=== PATIENT | male | born 1960 | race American Indian/Alaskan Native ===

== ENCOUNTER 2018-04-24 23:42 | Emergency (ER) | payer OTHER ==
[2018-04-25] MEDS ORDERED: NORCO 5/325 PO ONE (06:33)
--- NOTE | 2018-04-25 06:42 | Emergency Department Report ---
HPI - General Chief Complaint: Back Pain/Injury Time Seen by Provider: 04/25/18 06:10 - HPI HPI: 58 year-old male presents to the emergency department via EMS from home with complaint of a 5 day history of back pain. He says that it is "everywhere" but appears to be worst in the lower portion of the back. It was no known trauma or injury that started this. He has not taken anything for her symptoms prior to presentation. He denies any fever, diarrhea, urinary retention, numbness, paresthesias or any other neurological deficits. He does say that he has been having some constipation issues over the past few weeks. No problems with ambulation. He has a previous history of a brain tumor and seizures. He has [facility] for primary care needs but has not seen them regarding his symptoms. No recent travel or sick contacts at home. ED Past Medical Hx - Past Medical History Previous Medical History?: Yes Hx Congestive Heart Failure: No Hx Diabetes: No Hx Seizures: Yes Hx Asthma: No Hx COPD: No Hx HIV: No Additional medical history: head tumor - Surgical History Past Surgical History?: Yes Additional Surgical History: head - Social History Smoking Status: Never Smoker Substance Use Type: None - Medications Home Medications: Home Medications Medication Instructions Recorded Confirmed Last Taken Type Levofloxacin [Levaquin TAB] 500 mg PO QDAY #7 tablet 11/09/15 Unknown Rx Docusate Sodium [Colace] 100 mg PO BID PRN #20 capsule 04/25/18 Unknown Rx HYDROcodone/ACETAMINOPHEN [[place] 1 each PO Q6H PRN #10 tablet 04/25/18 Unknown Rx 5-325 Tablet] ED Review of Systems ROS: Stated complaint: LOWEWR BACK PAIN Other details as noted in HPI Comment: All other systems reviewed and negative Constitutional: denies: chills, fever Eyes: denies: eye pain, eye discharge, vision change ENT: denies: ear pain, throat pain Respiratory: denies: cough, shortness of breath, wheezing Cardiovascular: denies: chest pain, palpitations Gastrointestinal: denies: abdominal pain, nausea, diarrhea Genitourinary: denies: urgency, dysuria Musculoskeletal: back pain. denies: arthralgia Skin: denies: rash, lesions Neurological: denies: headache, weakness, paresthesias Physical Exam - Physical Exam Vital Signs: Vital Signs 04/25/18 04/25/18 00:40 04:41 Temperature 97.4 F L Pulse Rate 84 79 Respiratory 20 14 Rate Blood Pressure 146/100 Blood Pressure 127/81 [Left] O2 Sat by Pulse 100 99 Oximetry Physical Exam: GENERAL: The patient is well-developed well-nourished. HENT: Normocephalic. Atraumatic. Patient has moist mucous membranes. EYES: Extraocular motions are intact. Pupils equal reactive to light bilaterally. NECK: Supple. Trachea is midline. CHEST/LUNGS: Clear to auscultation. There is no respiratory distress noted. HEART/CARDIOVASCULAR: Regular. There is mild tachycardia. There is no murmur. ABDOMEN: Abdomen is soft, nontender. Patient has normal bowel sounds. There is no abdominal distention. SKIN: Skin is warm and dry. NEURO: The patient is awake, alert, and oriented. The patient is cooperative. The patient has no focal neurologic deficits. The patient has normal speech. MUSCULOSKELETAL: There is no tenderness or deformity. There is no limitation range of motion. There is no evidence of acute injury. Muscle strength 5/5 upper and lower extremities. BACK: There is both midline and paraspinal generalized back pain. No step-off or deformity. ED Course Vital Signs 04/25/18 04/25/18 00:40 04:41 Temperature 97.4 F L Pulse Rate 84 79 Respiratory 20 14 Rate Blood Pressure 146/100 Blood Pressure 127/81 [Left] O2 Sat by Pulse 100 99 Oximetry ED Medical Decision Making - Lab Data Result diagrams: 04/25/18 06:44 04/25/18 06:43 - Radiology Data Radiology results: image reviewed interpreted by me: X-ray of the lumbar and thoracic spines did not show any fracture, subluxation or any obvious acute process. - Medical Decision Making Patient presents with a 5 day history of some back pain that is generalized but worse in the lower area. No numbness, paresthesias. He complained of some occasional constipation but no abdominal pain or distention. No urinary retention. The pain is both midline and paraspinal. There are no focal, motor or sensory deficits. He appears low suspicion for any of the emergent back condition such as cauda equina, epidural abscess or cord compression syndrome. He was given a single [place] pill with improvement of his discomfort. He was seen ambulatory in the emergency department prior to discharge and appeared stable on doing so. Patient's labs did show some hyponatremia with a sodium of 130. Patient was given a 1 L bolus of normal saline which should be hypertonic to his current sodium level. Vital signs stable throughout his ED course. The patient has good follow-up through the [facility] system and has been encouraged to see a primary care physician as well as an orthopedist or neurosurgeon regarding his back pain. He will return to the ER with any worsening of symptoms or any acute distress. - Differential Diagnosis muscle spasm, strain, contusion, fracture, herniated disc Critical Care Time: No Critical care attestation.: If time is entered above; I have spent that time in minutes in the direct care of this critically ill patient, excluding procedure time. ED Disposition Clinical Impression: Hyponatremia Back pain Qualifiers: Back pain location: back pain in unspecified location Chronicity: unspecified Back pain laterality: unspecified Qualified Code(s): M54.9 - Dorsalgia, unspecified Hypertension Qualifiers: Hypertension type: essential hypertension Qualified Code(s): I10 - Essential ( primary) hypertension Disposition: TO HOME OR SELFCARE Is pt being admited?: No Condition: Stable Instructions: Hyponatremia (ED), Hypertension (ED), Back Pain (ED) Additional Instructions: Please follow up with a primary care physician and either a orthopedic spinal doctor or neurosurgeon, through your [facility] healthcare plan. Return to the emergency Department with any worsening of your symptoms or any acute distress. You have been prescribed a medication that is sedating and therefore should not be taken prior to driving, working, and responsible for children and in no way should be mixed with alcohol of any quantity. Keep a blood pressure log. Try and stay away from foods that are high in salt and caffeinated products. Prescriptions: Docusate Sodium [Colace] 100 mg PO BID PRN #20 capsule PRN Reason: Constipation HYDROcodone/ACETAMINOPHEN [[place] 5-325 Tablet] 1 each PO Q6H PRN #10 tablet PRN Reason: Pain, Moderate (4-6) Referrals: FILIBERTO HENDERSON MD [Primary Care Provider] - 3-5 Days CECILIO YOUNGER MD [Staff Physician] - 3-5 Days [facility] [Provider Group] - 3-5 Days Time of Disposition: 11:29
[2018-04-25 07:12] LABS: Hematocrit 42.9 % (35.5-45.6); Hemoglobin 14.4 gm/dl (11.8-15.2); Mean Corpuscular HGB Conc 34 % (32-34); Mean Corpuscular Hemoglobin 30 pg (28-32); Mean Corpuscular Volume 90 fl (84-94); Platelet Count 340 K/mm3 (140-440); Red Blood Count 4.78 M/mm3 (3.65-5.03); Red Cell Distribution Width 15.6 % (13.2-15.2)
[2018-04-25 07:40] LABS: Alanine Aminotransferase 45 units/L (7-56); Albumin 3.4 g/dL (3.9-5); BUN/Creatinine Ratio 16; Blood Urea Nitrogen 16 mg/dL (9-20); Calcium 9.4 mg/dL (8.4-10.2); Hemolysis Index 11
[2018-04-25] MEDS ORDERED: NACL 0.9% 1000 ML 1,000 ML IV ONE (07:48)
[2018-04-25 08:37] LABS: Band Neutrophils # (Manual) 0.7 K/mm3; Basophils % (Manual) 0 % (0.0-1.8); Eosinophils % (Manual) 0 % (0.0-4.3); Platelet Estimate Cons; RBC Morphology Normal; Total Cells Counted 100
[2018-04-25 08:44] LABS: Bilirubin,Urine NEG (Negative); Blood,Urine NEG (Negative); Color,Urine Yellow (Yellow); WBC,Urine < 1.0 /HPF (0.0-6.0)
--- NOTE | 2018-04-25 11:15 | XRay Report ---
THORACIC SPINE: Pain. The bones are normally mineralized with well preserved vertebral height, alignment and interspace distances. No paraspinal soft tissue widening is noted. IMPRESSION: Normal study. Lumbar spine: Pain. AP and lateral views demonstrate mild anterior traction spurs at the superior margins of L4 and L5. Vertebral height, alignment, and interspaces are preserved. The bones are well-mineralized. The apophyseal joints appear intact. Impression: Mild lower lumbar spondylosis. No acute findings.
[2018-04-25 12:03] VITALS: BP 165/95
== END 2018-04-25 12:02 | disposition home or self-care (01) ==
LOC: ED 23:42
DX: M54.5 Low back pain (principal); I10 Essential (primary) hypertension; E87.1 Hypo-osmolality and hyponatremia
CPT/HCPCS: 36415; 72072; 72100; 80053; 81001; 82550; 85007; 85025; 99284; J7030